=== PATIENT | male | born 1965 | race Caucasian/White ===

== ENCOUNTER 2023-05-10 08:13 | Emergency (ER) | payer BC | END 2023-05-10 08:50 | disposition home or self-care (01) | LOC: MADERS 08:13 | DX: J06.9 Acute upper respiratory infection, unspecified (principal); E11.9 Type 2 diabetes mellitus without complications; E78.5 Hyperlipidemia, unspecified; Z87.891 Personal history of nicotine dependence | CPT/HCPCS: 36416; 87635; 99283 ==

== ENCOUNTER 2024-11-25 11:17 | Emergency (ER) | payer BC ==
[2024-11-25] MEDS ORDERED: Nitroglycerin 0.4 MG TAB 1 EACH ONE (11:27)
[2024-11-25] MEDS ORDERED: Aspirin Chewable 81 MG TAB ONE (11:27)
[2024-11-25 11:40] LABS: #Basophils 0.1 thou/uL (0.0-0.2); #Eosinophils 0.2 thou/uL (0.0-0.7); #Lymphocytes 1.6 thou/uL (1.20-3.40); #Monocytes 0.3 thou/uL (0.11-0.59); #Neutrophils 2.4 thou/uL (1.40-6.50); %Basophils 2.4 % (0.0-1.0); %Eosinophils 3.6 % (0.0-10.0); %Lymphocytes 34.9 % (21.0-51.0); %Monocytes 6.8 % (0.0-10.0); %Neutrophils 52.3 % (42.0-75.0); Hematocrit 41.5 % (42.0-52.0); Hemoglobin 14.0 g/dL (14.0-18.0); Mean Corpuscular Hemoglobin 32.6 pg (27.0-31.0); Mean Corpuscular Volume 96.7 fl (78.0-98.0); Platelet Count 152 10x3/uL (130-400); Red Blood Cell (RBC) Count 4.29 mill/uL (4.70-6.10); White Blood Cell (WBC) Count 4.6 10x3/uL (4.8-10.8)
[2024-11-25 11:54] LABS: ALT (SGPT) 103 U/L (Less than 45); AST (SGOT) 76 U/L (11-34); Albumin 4.5 g/dL (3.1-4.5); Alkaline Phosphatase 64 U/L (40-110); Anion Gap 14 mmol/L (10-20); BUN (Urea Nitrogen) 14 mg/dL (8.4-25.7); Bilirubin, Total 0.6 mg/dL (0.3-1.2); Calc. Creatinine Clearance 0 mL/min (70-130); Calcium 8.8 mg/dL (7.8-10.44); Carbon Dioxide 22 mmol/L (23-31); Chloride 110 mmol/L (98-107); Globulin 2.2 g/dL (2.4-3.5); Glucose 135 mg/dL (80-115); Magnesium 2.1 mg/dL (1.6-2.6); Potassium 4.2 mmol/L (3.5-5.1); Sodium 142 mmol/L (136-145)
[2024-11-25 11:55] LABS: Troponin I 0.011 ng/mL (< 0.028)
[2024-11-25 14:36] LABS: Troponin I Less than 0.010 ng/mL (< 0.028)
== END 2024-11-25 14:50 | disposition home or self-care (01) ==
LOC: MADERS 11:17
DX: R07.89 Other chest pain (principal); E11.9 Type 2 diabetes mellitus without complications; I10 Essential (primary) hypertension; E78.5 Hyperlipidemia, unspecified; Z87.891 Personal history of nicotine dependence; Z79.899 Other long term (current) drug therapy; Z79.84 Long term (current) use of oral hypoglycemic drugs; Z79.82 Long term (current) use of aspirin
CPT/HCPCS: 71045; 80053; 83735; 84484; 85025; 93005; 94760

== ENCOUNTER 2024-12-19 07:56 | Outpatient (CLI) | payer BC ==
[2024-12-19 14:16] LABS: ALT (SGPT) 129 U/L (Less than 45); AST (SGOT) 87 U/L (11-34); Albumin 4.5 g/dL (3.1-4.5); Alkaline Phosphatase 60 U/L (40-110); Anion Gap 15 mmol/L (10-20); BUN (Urea Nitrogen) 15 mg/dL (8.4-25.7); Bilirubin, Total 0.6 mg/dL (0.3-1.2); Calc. Creatinine Clearance 0 mL/min (70-130); Calcium 8.8 mg/dL (7.8-10.44); Carbon Dioxide 21 mmol/L (23-31); Chloride 107 mmol/L (98-107); Globulin 2.3 g/dL (2.4-3.5); Glucose 121 mg/dL (80-115); Potassium 4.5 mmol/L (3.5-5.1); Sodium 138 mmol/L (136-145)
== END 2024-12-19 07:57 | disposition home or self-care (01) ==
LOC: MADLAB 07:56
PROVIDERS: ATTEND Plastic Surgery Surgery of the Hand
DX: E78.49 Other hyperlipidemia (principal); I10 Essential (primary) hypertension; R74.01 Elevation of levels of liver transaminase levels
CPT/HCPCS: 36415; 80053

== ENCOUNTER 2025-02-27 08:27 | Outpatient (CLI) | payer BC ==
[2025-02-27 08:52] LABS: Hematocrit 45.7 % (42.0-52.0); Hemoglobin 14.7 g/dL (14.0-18.0); Mean Corpuscular Hemoglobin 31.5 pg (27.0-31.0); Mean Corpuscular Volume 98.1 fl (78.0-98.0); Platelet Count 135 10x3/uL (130-400); Red Blood Cell (RBC) Count 4.66 mill/uL (4.70-6.10); White Blood Cell (WBC) Count 4.2 10x3/uL (4.8-10.8)
[2025-02-27 09:06] LABS: ALT (SGPT) 173 U/L (Less than 45); AST (SGOT) 111 U/L (11-34); Albumin 4.4 g/dL (3.1-4.5); Alkaline Phosphatase 90 U/L (40-110); Anion Gap 16 mmol/L (10-20); BUN (Urea Nitrogen) 17 mg/dL (8.4-25.7); Bilirubin, Total 0.6 mg/dL (0.3-1.2); Calc. Creatinine Clearance 0 mL/min (70-130); Calcium 8.8 mg/dL (7.8-10.44); Carbon Dioxide 20 mmol/L (23-31); Cardiac Risk 3.4 (Less than 4.5); Chloride 109 mmol/L (98-107); Cholesterol 113 mg/dl (< 200 Desired); Globulin 2.3 g/dL (2.4-3.5); Glucose 124 mg/dL (80-115); HDL Cholesterol 33 mg/dL (>60 Neg Risk); LDL Cholesterol, Calculated 53 mg/dL; MDiff Complete? YES; Manual Diff?? YES; Potassium 4.6 mmol/L (3.5-5.1); Sodium 140 mmol/L (136-145); Triglycerides 135 mg/dL (Less than 150)
[2025-02-27 09:07] LABS: Platelet Adequacy Comment Appears Adequate
== END 2025-02-27 08:28 | disposition home or self-care (01) ==
LOC: MADLAB 08:27
PROVIDERS: ATTEND Specialist
DX: E11.65 Type 2 diabetes mellitus with hyperglycemia (principal); I10 Essential (primary) hypertension; E29.1 Testicular hypofunction; E03.8 Other specified hypothyroidism
CPT/HCPCS: 36415; 80053; 80061; 83036; 84403; 85025